=== PATIENT | male | born 1955 | race Caucasian/White ===

== ENCOUNTER 2017-01-25 17:12 | Emergency (ER) | payer MEDICARE, MEDICAID ==
[~2017-01-25] VITALS: Ht 190.5 cm; Wt 63.5 kg
[2017-01-25] MEDS ORDERED: HYDROCHLOROTH12.5 M2 ORAL (17:27)
[2017-01-25] MEDS ORDERED: BACLOFEN10 MG ORAL (17:27)
[2017-01-25] MEDS ORDERED: MOBIC7.5 MG ORAL (17:27)
[2017-01-25] MEDS ORDERED: Norco 5mg/325mg tab ORAL ONE (17:30)
[2017-01-25] MEDS ORDERED: Morphine Sulfate 4mg/ml Inj IVP ONE (19:15)
[2017-01-25] MEDS ORDERED: ceFAZolin 2gm/50ml Premix 50 ML IV ONE (19:45)
[2017-01-25 20:14] LABS: BASOPHILS % (AUTO) 0.6 % (0.0-2.0); EOSINOPHILS % (AUTO) 0.3 % (0.0-3.0); LYMPHOCYTES % (AUTO) 10.4 % (20.0-45.0); MEAN CORPUSCULAR HEMOGLOBIN 33.6 PG (27.0-31.0); MEAN CORPUSCULAR VOLUME 96 FL (80-99); MEAN PLATELET VOLUME 5.5 FL (6.5-10.1); MONOCYTES % (AUTO) 7.4 % (1.0-10.0); NEUTROPHILS % (AUTO) 81.2 % (45.0-75.0); PLATELET COUNT 245 K/UL (150-450); RED BLOOD COUNT 3.88 M/UL (4.70-6.10); RED CELL DISTRIBUTION WIDTH 15.3 % (11.6-14.8); WHITE BLOOD COUNT 8.1 K/UL (4.8-10.8)
[2017-01-25 20:27] LABS: INR 0.9 (0.9-1.1); PROTHROMBIN TIME 9.6 SEC (9.30-11.50)
[2017-01-25 20:33] LABS: ALANINE AMINOTRANSFERASE 18 U/L (3-41); ALBUMIN/GLOBULIN RATIO 1.4 (1.0-2.7); ANION GAP 13 (5-15); ASPARTATE AMINO TRANSFERASE 46 U/L (5-40); CALCIUM 9.1 mg/dL (8.6-10.2); CARBON DIOXIDE 27 mEQ/L (20-30); CHLORIDE 93 mEQ/L (98-107); CREATININE 0.9 mg/dL (0.7-1.2); GLOMERULAR FILTRATION RATE > 60 mL/min (>60); HEMOLYSIS 2; POTASSIUM 3.5 mEQ/L (3.4-4.9); SODIUM 133 mEQ/L (135-145); TOTAL PROTEIN 6.7 g/dL (6.6-8.7)
--- NOTE | 2017-01-25 21:55 | Emergency Room Report ---
History of Present Illness General Chief Complaint: Pain Source: EMS Present Illness HPI The patient is a 61-year-old male with a history of hypertension and prostate cancer in remission presenting for right hip pain. The patient states that he fell in June of 2016 and had surgery with hardware placed. He states that 3 days prior, he again tripped and fell onto his right hip. Pain is a 9/10 dull ache and does not radiate. Worse with movement. He takes Percocet at home which does help. He states that usually ambulates with a walker at home which has been difficult since the new injury. He denies any other symptoms. He denies hitting his head or loss of consciousness at that time. Allergies: Coded Allergies: No Known Allergies (Verified , 11/15/09) Patient History Past Medical History: see triage record Pertinent Family History: none Reviewed Nursing Documentation: PMH: Agreed, PSxH: Agreed Nursing Documentation-PMH Past Medical History: No History, Except For Hx Hypertension: Yes Hx Cancer: Yes - PROSTATE Review of Systems All Other Systems: negative except mentioned in HPI Physical Exam Vital Signs Date Time Temp Pulse Resp B/P Pulse Ox O2 Delivery O2 Flow Rate FiO2 01/25/17 17:06 97.9 97 18 160/84 99 Room Air Sp02 EP Interpretation: reviewed, normal General Appearance: no apparent distress, alert, GCS 15, non-toxic Head: normocephalic, atraumatic Eyes: bilateral eye PERRL, bilateral eye normal inspection Respiratory: chest non-tender, lungs clear, normal breath sounds, speaking full sentences Cardiovascular #1: regular rate, rhythm, no edema Musculoskeletal: normal range of motion - Of R hip, no calf tenderness, tender - TTP over the R lateral and anterior hip Neurologic: alert, oriented x3, responsive, motor strength/tone normal, sensory intact, speech normal Psychiatric: judgement/insight normal, memory normal, mood/affect normal, no suicidal/homicidal ideation Skin: normal color, no rash, warm/dry, well hydrated, abrasions - to R forearm Lymphatic: no adenopathy Medical Decision Making PA Attestation Dr. Medina is my supervising physician. Patient management was discussed with my supervising physician Diagnostic Impression: Primary Impression: Hip fracture Qualified Codes: S72.001A - Fracture of unspecified part of neck of right femur, initial encounter for closed fracture ER Course The patient is a 61-year-old male with past ORIF of the right hip presenting for a fall onto the right hip. Ddx considered include but not limited to sprain/strain, fracture, dislocation, infection, contusion, hardware failure, among others PE: NAD There is tenderness to palpation over the right lateral and anterior hip. There is shortening of the right leg. Full active range of motion of the right hip. Sensation is intact DP pulse 2+ Otherwise unremarkable. CT scan of the pelvis, x-ray of the right hip, and x-ray of the right femur show acute fracture of the femoral neck and possible fracture of the femoral head with hardware in place. The patient is given pain medications and feels better. Dr. Medina contacted our orthopedic physician transcription typist Dr. Madera who refused the patient due to hardware in-place. He recommends patient go to higher level of care. We attempted to contact [facility] multiple times as well as the orthopedic surgeon who performed the surgery in June of [address] Medina then contacted [facility] for transfer. He spoke with Dr. Zavala with trauma surgery who will be accepting the patient. The patient understands and accepts this plan. Laboratory Tests Test 01/25/17 20:00 White Blood Count 8.1 K/UL (4.8-10.8) Red Blood Count 3.88 M/UL (4.70-6.10) L Hemoglobin 13.1 G/DL (14.2-18.0) L Hematocrit 37.3 % (42.0-52.0) L Mean Corpuscular Volume 96 FL (80-99) Mean Corpuscular Hemoglobin 33.6 PG (27.0-31.0) H Mean Corpuscular Hemoglobin Concent 35.0 G/DL (32.0-36.0) Red Cell Distribution Width 15.3 % (11.6-14.8) H Platelet Count 245 K/UL (150-450) Mean Platelet Volume 5.5 FL (6.5-10.1) L Neutrophils (%) (Auto) 81.2 % (45.0-75.0) H Lymphocytes (%) (Auto) 10.4 % (20.0-45.0) L Monocytes (%) (Auto) 7.4 % (1.0-10.0) Eosinophils (%) (Auto) 0.3 % (0.0-3.0) Basophils (%) (Auto) 0.6 % (0.0-2.0) Prothrombin Time 9.6 SEC (9.30-11.50) Prothrombin Time INR 0.9 (0.9-1.1) PTT 29 SEC (23-33) Sodium Level 133 mEQ/L (135-145) L Potassium Level 3.5 mEQ/L (3.4-4.9) Chloride Level 93 mEQ/L (98-107) L Carbon Dioxide Level 27 mEQ/L (20-30) Anion Gap 13 (5-15) Blood Urea Nitrogen 14 mg/dL (7-23) Creatinine 0.9 mg/dL (0.7-1.2) Estimate Glomerular Filtration Rate > 60 mL/min (>60) Glucose Level 116 mg/dL (74-106) H Calcium Level 9.1 mg/dL (8.6-10.2) Total Bilirubin 0.6 mg/dL (0.0-1.2) Aspartate Amino Transferase (AST) 46 U/L (5-40) H Alanine Aminotransferase (ALT) 18 U/L (3-41) Alkaline Phosphatase 54 U/L (40-129) Total Protein 6.7 g/dL (6.6-8.7) Albumin 4.0 g/dL (3.5-5.2) Globulin 2.7 g/dL Albumin/Globulin Ratio 1.4 (1.0-2.7) Lab Results Impression Unremarkable Other X-Ray Diagnostic Results Other X-Ray Diagnostic Results #1: X-Ray ordered: R pelvis # of Views/Limited Vs Complete: 2 View Indication: Pain EP Interpretation: Yes Interpretation: no dislocation, no soft tissue swelling, other - acute fracture of femoral neck Interpreting ER Provider: Dr. Adam DELUCA Scribe Text I am acting as scribe for my supervising physician. My supervising physician's interpretation of the R hip xrays are there are Is an acute fracture of the femoral neck. Hardware in place Other X-Ray Diagnostic Results #2: X-Ray ordered: R femur # of Views/Limited Vs Complete: 4 View Indication: Pain EP Interpretation: Yes Interpretation: no dislocation, no soft tissue swelling, other - fracture of fermoral neck Interpreting ER Provider: Dr. Adam DELUCA Scribe Text I am acting as scribe for my supervising physician. My supervising physician's interpretation of the R femur xrays are there are Is an acute fracture of the femoral neck. Hardware in place Last Vital Signs Date Time Temp Pulse Resp B/P Pulse Ox O2 Delivery O2 Flow Rate FiO2 01/25/17 17:06 97.9 97 18 160/84 99 Room Air Status: improved Disposition: XFER SHT-TRM HOSP Condition: Stable Referrals: NOT CHOSEN IPA/,REFERRING (PCP) SHREYA LOZOYA Jan 25, 2017 21:54
[2017-01-25] MEDS ORDERED: LORazepam Inj 2mg/ml 1ml IV PRN (22:15)
[2017-01-25] MEDS ORDERED: Miralax 17gm pkt ORAL PRN (22:15)
[2017-01-25] MEDS ORDERED: Zolpidem 5mg tab ORAL PRN (22:15)
[2017-01-25] MEDS ORDERED: Morphine Sulfate 4mg/ml Inj IVP PRN (22:15)
[2017-01-25] MEDS ORDERED: Mylanta II UD 30ml ORAL PRN (22:15)
[2017-01-25] MEDS ORDERED: Morphine Sulfate 2mg/ml Inj IVP PRN (22:15)
[2017-01-25] MEDS ORDERED: D5 1/2NS 1,000 ML IV SCH (23:00)
[2017-01-25 23:25] VITALS: BP 136/79
[2017-01-25 23:30] VITALS: BP 136/79
[2017-01-26] MEDS ORDERED: Heparin 5000 units/ml inj SUBQ SCH (09:00)
--- NOTE | 2017-01-26 09:17 | Diagnostic Imaging Report ---
Indications: Fall, right hip and thigh injury and pain Technique: 2 views right hip, 2 views right thigh. Findings: Comparison: None No acute fracture, dislocation, joint space widening , surrounding soft tissue swelling/foreign body/gas, or other acute changes are identified, though evaluation of distal femur and the limited by overexposure. Fixation hardware bridges an old, healed fracture of the right femoral intertrochanteric region. The upper fixation screws protrude several centimeters into the overlying lateral hip soft tissues. Scattered arterial mural calcifications.. IMPRESSION: No evidence of acute injury to the right hip or thigh, with limitation as described. Dedicated right knee radiographs recommended for further evaluation as clinically indicated. Prior ORIF right femoral intertrochanteric region, healed. Screw positioning as described Arteriosclerosis
--- NOTE | 2017-01-26 13:20 | Diagnostic Imaging Report ---
Indications: Pelvic pain Technique: Continuous helical CT imaging of the pelvis was performed with automatic exposure control on a Siemens sensation [address] scanner. Axial, coronal, sagittal images reconstructed at 3 mm slice thickness. CTDI volume(s): 9, 10 mGy Total DLP: 517 mGy-cm Findings: Comparison: None Is a comminuted fracture of the right femoral neck and intratrochanteric region, bridged by fixation screws and intramedullary osmel. There is significant associated contour deformity. Surrounding soft tissues are swollen. The 2 proximal fixation screws protrude prominently into the overlying lateral soft tissues. Focal lucency surrounds the central aspect of the more cephalad of these 2 screws. No additional fracture, dislocation, joint space widening, additional foci of soft tissue swelling/mass/fluid/gas/foreign body, or other acute changes are identified. Small nodular calcifications are present in the lower pole of the right kidney. Prominent arterial mural calcifications are present. Vascular patency is indeterminate. Focal calcifications are present the prostate gland. Small disc marginal osteophytes are present in the lower lumbar spine. Impression: Status post ORIF right femoral neck/intertrochanteric fracture with significant comminution and contour deformity. Positioning of proximal fixation screws as described. Loosening of upper screw not excludable. Surrounding soft tissue swelling suggests recent CT of trauma/surgery No other evidence of acute injury Right nephrolithiasis Arteriosclerosis Mild degenerative spondylosis This correlates with [facility] preliminary report.
== END 2017-01-25 23:30 | disposition short-term general hospital (02) ==
LOC: EDBD 17:12 → EMR 17:55 → UNDOADMIN 19:36 → 3E 19:36 → EDBEDREQ 20:11
DX: S72.001A Fracture of unspecified part of neck of right femur, initial encounter for closed fracture (principal); I10 Essential (primary) hypertension; Z85.46 Personal history of malignant neoplasm of prostate; W18.30XA Fall on same level, unspecified, initial encounter; Y92.9 Unspecified place or not applicable
CPT/HCPCS: 36415; 72192; 73502; 73552; 80053; 85025; 85610; 85730; 87040; 96374; 96375; 99285; J0690; J2270; J2405